=== PATIENT | female | born 1960 | race African-American/Black ===

== ENCOUNTER 2018-01-17 13:41 | Emergency (ER) | payer MEDICAID ==
[~2018-01-17] VITALS: Ht 175.3 cm; Wt 68.0 kg
[~2018-01-17 13:41] MED LIST: PROPRANOLOL; VICODIN
[2018-01-17 15:40] LABS: CHLORIDE 107 mEq/L (98-107)
[2018-01-17] MEDS ORDERED: ONDANSETRON HCL 4MG/2ML VIAL IV STA (15:40)
[2018-01-17] MEDS ORDERED: MORPHINE SULFATE 4 MG/ML CPJ (NOT FOR IM USE) IV STA (15:40)
[2018-01-17 15:41] LABS: BASOPHILS % 0.6 % (0.0-2.0); EOSINOPHILS % 2.5 % (0.0-5.0); HEMATOCRIT. 38.6 % (36.0-48.0); HEMOGLOBIN. 12.8 g/dL (12.0-16.0); LYMPHOCYTES % 30.1 % (20.0-50.0); MEAN CORPUSCULAR HEMOGLOBIN 29.2 pg (28.0-32.0); MEAN CORPUSCULAR VOLUME 87.9 fL (81.0-99.0); MEAN PLATELET VOLUME 8.6 fl (7.4-10.4); MONOCYTES % 6.9 % (2.0-8.0); NEUTROPHILS % 59.9 % (40.0-76.0); PLATELET 289 x1000/uL (130-400); RED BLOOD CELL COUNT 4.39 mill/uL (4.2-5.4); RED CELL DISTRIBUTION WIDTH 14.3 % (11.6-14.6)
[2018-01-17 15:42] LABS: PARTIAL THROMBOPLASTIN TIME 24.5 sec (23.4-31.0); PROTHROMBIN TIME 10.3 sec (9.4-11.6)
[2018-01-17] MEDS ORDERED: PANTOPRAZOLE SODIUM 40 MG/VIAL IV SCH (15:45)
[2018-01-17] MEDS ORDERED: SODIUM CHLORIDE 0.9% 1,000 ML IV ONE (16:32)
[2018-01-17] MEDS ORDERED: DIPHENHYDRAMINE 50MG/ML VIAL IV ONE (16:45)
[2018-01-17 19:00] VITALS: BP 126/71
== END 2018-01-17 19:39 | disposition home or self-care (01) ==
LOC: ER 13:41
DX: R10.13 Epigastric pain (principal); I10 Essential (primary) hypertension; F41.9 Anxiety disorder, unspecified; F17.200 Nicotine dependence, unspecified, uncomplicated; Z98.890 Other specified postprocedural states; Z90.49 Acquired absence of other specified parts of digestive tract
CPT/HCPCS: 36415; 71045; 80053; 83690; 84484; 85025; 85610; 85730; 93005; 96361; 96374; 96375; 99285; C9113; J1200; J2270; J2405; J7030; Z7610

== ENCOUNTER 2019-01-14 05:08 | Emergency (ER) | payer MEDICAID, OTHER ==
[~2019-01-14] VITALS: Ht 172.7 cm; Wt 69.0 kg
[2019-01-14 05:48] LABS: CLARITY URINE TURBID (CLEAR); COLOR URINE YELLOW (YELLOW); KETONES URINE NEGATIVE (NEGATIVE); LEUKOCYTE ESTERASE URINE 3+ (NEGATIVE); NITRITE URINE NEGATIVE (NEGATIVE); OCCULT BLOOD URINE 3+ (NEGATIVE); PH URINE 5.5 (4.5-8.0); PROTEIN URINE 2+ (NEGATIVE); SPECIFIC GRAVITY URINE 1.017 (1.005-1.030); UROBILINOGEN URINE 0.2 E.U./dL (0.2-1.0)
[2019-01-14 06:02] VITALS: BP 103/46
[2019-01-14] MEDS ORDERED: ACETAMINOPHEN 325MG TABLET PO ONE (06:30)
[2019-01-14] MEDS ORDERED: LEVOFLOXACIN 250MG TABLET PO ONE (06:30)
== END 2019-01-14 06:40 | disposition home or self-care (01) ==
LOC: ER 05:08
DX: N39.0 Urinary tract infection, site not specified (principal); R31.0 Gross hematuria; I10 Essential (primary) hypertension; F17.210 Nicotine dependence, cigarettes, uncomplicated
CPT/HCPCS: 99283

== ENCOUNTER 2019-12-23 17:55 | Emergency (ER) | payer OTHER ==
[~2019-12-23] VITALS: Ht 172.7 cm; Wt 65.0 kg
[2019-12-23 17:56] VITALS: BP 146/93
== END 2019-12-23 19:47 | disposition left against medical advice (07) ==
LOC: ER 17:55
DX: M79.662 Pain in left lower leg (principal); I10 Essential (primary) hypertension
CPT/HCPCS: 99281

== ENCOUNTER 2020-02-26 14:14 | Emergency (ER) | payer OTHER ==
[~2020-02-26] VITALS: Ht 172.7 cm; Wt 68.0 kg
[2020-02-26 15:32] LABS: CLARITY URINE CLOUDY (CLEAR); COLOR URINE YELLOW (YELLOW); KETONES URINE NEGATIVE (NEGATIVE); LEUKOCYTE ESTERASE URINE 3+ (NEGATIVE); NITRITE URINE NEGATIVE (NEGATIVE); OCCULT BLOOD URINE 3+ (NEGATIVE); PH URINE 6.5 (4.5-8.0); PROTEIN URINE NEGATIVE (NEGATIVE); SPECIFIC GRAVITY URINE 1.014 (1.005-1.030); UROBILINOGEN URINE 0.2 E.U./dL (0.2-1.0)
[2020-02-26] MEDS ORDERED: CEFTRIAXONE SODIUM 250 MG/VIAL IM ONE (16:45)
[2020-02-26] MEDS ORDERED: AZITHROMYCIN 500 MG TABLET PO ONE (16:45)
[2020-02-26] MEDS ORDERED: FLUCONAZOLE 150MG TABLET PO ONE (16:45)
[2020-02-26] MEDS ORDERED: IBUPROFEN 600MG TABLET PO ONE (16:45)
[2020-02-26 17:10] VITALS: BP 145/78
== END 2020-02-26 18:24 | disposition home or self-care (01) ==
LOC: ER 14:14
DX: A59.00 Urogenital trichomoniasis, unspecified (principal); I10 Essential (primary) hypertension
CPT/HCPCS: 81003; 81025; 87086; 96372; 99284; J0696

== ENCOUNTER 2020-05-23 13:04 | Emergency (ER) | payer OTHER ==
[~2020-05-23] VITALS: Ht 165.1 cm; Wt 69.0 kg
[2020-05-23] MEDS ORDERED: SODIUM CHLORIDE 0.9% 1,000 ML IV ONE (13:30)
[2020-05-23 14:03] LABS: BASOPHILS % 0.6 % (0.0-2.0); EOSINOPHILS % 0.7 % (0.0-5.0); HEMATOCRIT. 44.3 % (36.0-48.0); HEMOGLOBIN. 14.8 g/dL (12.0-16.0); LYMPHOCYTES % 27.3 % (20.0-50.0); MEAN CORPUSCULAR HEMOGLOBIN 31.1 pg (28.0-32.0); MEAN CORPUSCULAR VOLUME 92.8 fL (81.0-99.0); MEAN PLATELET VOLUME 9.2 fl (7.4-10.4); MONOCYTES % 6.6 % (2.0-8.0); NEUTROPHILS % 64.8 % (40.0-76.0); PLATELET 360 x1000/uL (130-400); RED BLOOD CELL COUNT 4.77 mill/uL (4.2-5.4); RED CELL DISTRIBUTION WIDTH 14.4 % (11.6-14.6)
[2020-05-23 14:05] LABS: CHLORIDE 111 mEq/L (98-107)
[2020-05-23 14:34] LABS: ETHANOL BLOOD 56 mg/dL
[2020-05-23 14:47] LABS: CLARITY URINE CLOUDY (CLEAR); COLOR URINE YELLOW (YELLOW); KETONES URINE NEGATIVE (NEGATIVE); LEUKOCYTE ESTERASE URINE 2+ (NEGATIVE); NITRITE URINE NEGATIVE (NEGATIVE); OCCULT BLOOD URINE 3+ (NEGATIVE); PROTEIN URINE NEGATIVE (NEGATIVE); SPECIFIC GRAVITY URINE 1.006 (1.005-1.030); UROBILINOGEN URINE 0.2 E.U./dL (0.2-1.0)
[2020-05-23 15:06] LABS: *AMPHETAMINES SCREEN URINE NEGATIVE (NEGATIVE); *BARBITURATES SCREEN URINE NEGATIVE (NEGATIVE); *BENZODIAZEPINES SCREEN URINE PRESUMTIVE POSITIVE (NEGATIVE); *COCAINE SCREEN URINE PRESUMTIVE POSITIVE (NEGATIVE); CANNABINOID URINE SCREEN NEGATIVE (NEGATIVE); METHADONE URINE SCREEN NEGATIVE (NEGATIVE); OPIATES URINE SCREEN NEGATIVE (NEGATIVE); PHENCYCLIDINE URINE SCREEN PRESUMTIVE POSITIVE (NEGATIVE)
[2020-05-23 17:26] VITALS: BP 134/91
== END 2020-05-23 17:33 | disposition home or self-care (01) ==
LOC: ER 13:21
DX: F19.10 Other psychoactive substance abuse, uncomplicated (principal); F10.129 Alcohol abuse with intoxication, unspecified; I10 Essential (primary) hypertension; F17.200 Nicotine dependence, unspecified, uncomplicated; F16.10 Hallucinogen abuse, uncomplicated; F14.10 Cocaine abuse, uncomplicated; Z90.49 Acquired absence of other specified parts of digestive tract; Z98.890 Other specified postprocedural states; Y90.2 Blood alcohol level of 40-59 mg/100 ml
CPT/HCPCS: 36415; 71045; 80053; 80305; 80307; 80320; 80329; 81003; 82140; 83690; 84484; 85025; 93005; 96360; 96361; 99285; J7030; G0480

== ENCOUNTER 2021-10-13 19:18 | Emergency (ER) | payer OTHER ==
[~2021-10-13] VITALS: Ht 172.7 cm; Wt 62.0 kg
[2021-10-13 21:08] LABS: BASOPHILS % 0.7 % (0.0-2.0); EOSINOPHILS % 1.9 % (0.0-5.0); HEMATOCRIT. 36.1 % (36.0-48.0); HEMOGLOBIN. 12.3 g/dL (12.0-16.0); LYMPHOCYTES % 39.7 % (20.0-50.0); MEAN CORPUSCULAR HEMOGLOBIN 30.7 pg (28.0-32.0); MEAN CORPUSCULAR VOLUME 89.9 fL (81.0-99.0); MEAN PLATELET VOLUME 8.6 fl (7.4-10.4); NEUTROPHILS % 51.7 % (40.0-76.0); PLATELET 304 x1000/uL (130-400); RED BLOOD CELL COUNT 4.01 mill/uL (4.2-5.4); RED CELL DISTRIBUTION WIDTH 14.7 % (11.6-14.6)
[2021-10-13 21:13] LABS: CHLORIDE 107 mEq/L (98-107)
[2021-10-14] MEDS: ASPIRIN 81MG TABLET PO ONE (00:15)
[2021-10-14 02:00] VITALS: BP 122/60
== END 2021-10-14 02:08 | disposition home or self-care (01) ==
LOC: ER 19:18
DX: R07.89 Other chest pain (principal); F14.10 Cocaine abuse, uncomplicated; F13.10 Sedative, hypnotic or anxiolytic abuse, uncomplicated; F16.10 Hallucinogen abuse, uncomplicated; I10 Essential (primary) hypertension; Z90.49 Acquired absence of other specified parts of digestive tract; Z98.890 Other specified postprocedural states
CPT/HCPCS: 36415; 71045; 80053; 83880; 84484; 85025; 93005; 99285

== ENCOUNTER 2022-07-13 10:33 | Emergency (ER) | payer OTHER ==
[~2022-07-13] VITALS: Ht 172.7 cm; Wt 70.0 kg
[2022-07-13 10:48] VITALS: BP 149/82
== END 2022-07-13 14:43 | disposition left against medical advice (07) ==
LOC: ER 10:53
DX: Z53.21 Procedure and treatment not carried out due to patient leaving prior to being seen by health care provider (principal)

== ENCOUNTER 2022-09-05 05:47 | Emergency (ER) | payer OTHER ==
[~2022-09-05] VITALS: Ht 172.7 cm; Wt 67.6 kg
[2022-09-05] MEDS ORDERED: KETOROLAC 30MG/ML VIAL IV STA (05:54)
[2022-09-05] MEDS ORDERED: METOCLOPRAMIDE HCL 10MG/2ML VIAL IV ONE (06:00)
[2022-09-05 06:30] VITALS: BP 126/90
[2022-09-05 06:33] LABS: BASOPHILS % 0.5 % (0.0-2.0); EOSINOPHILS % 0.5 % (0.0-5.0); HEMATOCRIT. 33.6 % (36.0-48.0); HEMOGLOBIN. 11.3 g/dL (12.0-16.0); LYMPHOCYTES % 15.6 % (20.0-50.0); MEAN CORPUSCULAR HEMOGLOBIN 30.4 pg (28.0-32.0); MEAN CORPUSCULAR VOLUME 90.6 fL (81.0-99.0); MEAN PLATELET VOLUME 9.1 fl (7.4-10.4); MONOCYTES % 12.4 % (2.0-8.0); PLATELET 236 x1000/uL (130-400); RED BLOOD CELL COUNT 3.71 mill/uL (4.2-5.4); RED CELL DISTRIBUTION WIDTH 14.7 % (11.6-14.6)
[2022-09-05 06:40] LABS: CHLORIDE 106 mEq/L (98-107)
[2022-09-05 06:51] LABS: PROTHROMBIN TIME 10.3 sec (9.6-11.0)
[2022-09-05] MEDS ORDERED: TOPUD PO (07:59)
[2022-09-05] MEDS ORDERED: ONDA4TAB50 PO (07:59)
== END 2022-09-05 08:16 | disposition home or self-care (01) ==
LOC: ER 05:47
DX: R51.9 Headache, unspecified (principal); R53.83 Other fatigue; R10.9 Unspecified abdominal pain; I10 Essential (primary) hypertension; Z87.440 Personal history of urinary (tract) infections
CPT/HCPCS: 36415; 80053; 83690; 85025; 85610; 96374; 96375; 99284; J1885; J2765; Z7610

== ENCOUNTER 2025-04-23 05:08 | Inpatient (IN) | payer OTHER ==
[~2025-04-23] VITALS: Ht 175.3 cm; Wt 75.5 kg
[~2025-04-23 05:08] MED LIST changes: +ONDA4TAB50 PO; +TOPUD PO
[2025-04-23 05:10] VITALS: O2SAT 100
[2025-04-23 05:52] LABS: BASOPHILS % 0.6 % (0.0-2.0); EOSINOPHILS % 1.6 % (0.0-5.0); HEMATOCRIT. 35.5 % (36.0-48.0); HEMOGLOBIN. 11.9 g/dL (12.0-16.0); LYMPHOCYTES % 9.6 % (20.0-50.0); MEAN PLATELET VOLUME 8.0 fl (7.4-10.4); MONOCYTES % 9.9 % (2.0-8.0); NEUTROPHILS % 78.3 % (40.0-76.0); PLATELET 252 x1000/uL (130-400); RED BLOOD CELL COUNT 3.97 mill/uL (4.2-5.4); RED CELL DISTRIBUTION WIDTH 13.8 % (11.6-14.6)
[2025-04-23] MEDS: SODIUM CHLORIDE 0.9% 1,000 ML IV ONE (06:05)
[2025-04-23 06:07] LABS: CREATININE 0.8 mg/dL (0.6-1.0); UREA NITROGEN BLOOD 8 mg/dL (9-23)
[2025-04-23] MEDS: ACETAMINOPHEN 1000MG/100ML 100 ML IV ONE (06:08)
[2025-04-23] MEDS: METOCLOPRAMIDE HCL 10MG/2ML VIAL IV ONE (06:09)
[2025-04-23] MEDS: KETOROLAC 15MG/ML VIAL IV ONE (06:09)
[2025-04-23 09:00] LABS: TROPONIN I HIGH SENSITIVITY 8 ng/L (3.0-34)
[2025-04-23] MEDS ORDERED: IPRATROPIUM/ALBUTEROL 0.5-3(2.5)MG/3ML NEB HHN PRN (09:15)
[2025-04-23] MEDS ORDERED: ACETAMINOPHEN 325MG TABLET PO PRN (09:15)
[2025-04-23] MEDS ORDERED: ONDANSETRON HCL 4MG/2ML INJ IV PRN (09:15)
[2025-04-23] MEDS ORDERED: GUAIFENESIN 200MG/10ML SUGAR FREE UDC PO PRN (09:15)
[2025-04-23] MEDS ORDERED: DOCUSATE SODIUM 100MG CAPSULE PO PRN (09:15)
[2025-04-23] MEDS ORDERED: CLONIDINE 0.1MG TABLET PO PRN (09:15)
[2025-04-23] MEDS ORDERED: DEXTROSE 50% WATER 50ML SYRINGE IV PRN (09:30)
[2025-04-23] MEDS ORDERED: LORAZEPAM 0.5MG TABLET PO PRN (09:45)
[2025-04-23] MEDS: LISINOPRIL 40MG TABLET PO SCH (10:00)
[2025-04-23] MEDS: SODIUM CHLORIDE 0.45% 1,000 ML IV SCH (10:09)
[2025-04-23] MEDS: ACETAMINOPHEN 325MG TABLET PO PRN (10:40)
[2025-04-23 12:00] VITALS: BP 126/71; PULSE 57; RESP 18; TEMP 36.7; O2SAT 98
[2025-04-23 12:06] VITALS: BP 127/71; PULSE 57; RESP 18; TEMP 36.7516
[2025-04-23] MEDS: BLOOD SUGAR DIAGNOSTIC STRIP TEST SCH (13:31)
[2025-04-23 16:10] VITALS: BP 124/82; PULSE 64; RESP 20; TEMP 36.8; O2SAT 96
[2025-04-23] MEDS: KETOROLAC 30MG/ML VIAL IV PRN (18:55)
[2025-04-23 19:10] LABS: VITAMIN B12 SERUM 1387 pg/mL (211-911)
[2025-04-23 20:00] VITALS: BP 142/76; PULSE 65; RESP 18; TEMP 37.2; O2SAT 98
[2025-04-23] MEDS: MIRTAZAPINE 15MG TABLET PO SCH (21:14)
[2025-04-23] MEDS ORDERED: VARE1TAB24 PO (22:15)
[2025-04-23] MEDS ORDERED: CLON1TAB12 PO (22:15)
[2025-04-23] MEDS: CLONAZEPAM 1MG TABLET PO NR (23:29)
[2025-04-24] VITALS: BP 134/72; PULSE 50; RESP 18; TEMP 36.9; O2SAT 98
[2025-04-24 04:00] VITALS: BP 137/64; PULSE 50; RESP 18; TEMP 36.6; O2SAT 98
[2025-04-24 08:00] VITALS: BP 175/90; PULSE 67; RESP 17; TEMP 36.5
[2025-04-24] MEDS ORDERED: METH-817 MT (08:09)
[2025-04-24] MEDS ORDERED: LISI40TA21 PO (09:46)
[2025-04-24] MEDS ORDERED: VARE1TAB24 PO (09:46)
[2025-04-24] MEDS ORDERED: MIRT-89 PO (09:46)
[2025-04-24] MEDS ORDERED: METH10OR11 PO (10:27)
[2025-04-24] MEDS: METHADONE HCL 5MG TABLET PO SCH (11:39)
[2025-04-24] MEDS: METHADONE HCL 10MG TABLET PO SCH (11:39)
[2025-04-24 12:00] VITALS: BP 151/64; PULSE 54; RESP 16; TEMP 36.7; O2SAT 100
[2025-04-24] MEDS ORDERED: CLONIDINE 0.1MG TABLET PO PRN (12:45)
[2025-04-24 13:25] LABS: CLARITY URINE CLEAR (CLEAR); COLOR URINE YELLOW (YELLOW); GLUCOSE URINE NEGATIVE (NEGATIVE); KETONES URINE NEGATIVE (NEGATIVE); LEUKOCYTE ESTERASE URINE NEGATIVE (NEGATIVE); NITRITE URINE NEGATIVE (NEGATIVE); OCCULT BLOOD URINE 3+ (NEGATIVE); PH URINE 6.0 (4.5-8.0); PROTEIN URINE TRACE (NEGATIVE); SPECIFIC GRAVITY URINE 1.010 (1.005-1.030); UROBILINOGEN URINE 0.2 E.U./dL (0.2-1.0)
[2025-04-24 13:46] LABS: YEAST URINE NONE SEEN
[2025-04-24 13:47] LABS: SQUAMOUS EPITHELIAL CELL URINE FEW /lpf (RARE/1+)
[2025-04-24 13:48] LABS: BACTERIA URINE FEW
[2025-04-24 14:05] LABS: *AMPHETAMINES SCREEN URINE NEGATIVE (NEGATIVE); *BARBITURATES SCREEN URINE NEGATIVE (NEGATIVE); *BENZODIAZEPINES SCREEN URINE NEGATIVE (NEGATIVE)
[2025-04-24 14:06] LABS: *COCAINE SCREEN URINE NEGATIVE (NEGATIVE); CANNABINOID URINE SCREEN NEGATIVE (NEGATIVE); ECSTASY MDMA SCREEN URINE NEGATIVE (NEGATIVE); METHADONE URINE SCREEN Pos (NEGATIVE); OPIATES URINE SCREEN PRESUMPTIVE POSITIVE (NEGATIVE); PHENCYCLIDINE URINE SCREEN NEGATIVE (NEGATIVE)
[2025-04-24] MEDS ORDERED: FERR325T6 MT (14:30)
[2025-04-24] MEDS ORDERED: FERROUS SULFATE 325MG TABLET PO SCH (14:45)
[2025-04-24 16:00] VITALS: BP 147/82; PULSE 50; RESP 15; TEMP 36.7; O2SAT 97
[2025-04-24 17:28] VITALS: BP 147/82; PULSE 50; RESP 15; TEMP 98.1
== END 2025-04-24 18:25 | disposition home or self-care (01) | DRG 177 ==
LOC: ER 05:08 → 7WST 08:46 → EDBEDREQ 08:47 → EDBEDREQTM 08:47 → ENRESERV 08:57 → CANRESERV 08:57 → ENRESERV 09:51
PROVIDERS: ADMIT Internal Medicine; ATTEND Internal Medicine
DX: U07.1 COVID-19 (principal); J12.82 Pneumonia due to coronavirus disease 2019; D72.829 Elevated white blood cell count, unspecified; I10 Essential (primary) hypertension; F41.9 Anxiety disorder, unspecified; F32.A Depression, unspecified; R73.9 Hyperglycemia, unspecified; D50.9 Iron deficiency anemia, unspecified; Z79.899 Other long term (current) drug therapy; Z90.49 Acquired absence of other specified parts of digestive tract
CPT/HCPCS: 36415; 71045; 80048; 80305; 81003; 82607; 82728; 82962; 83036; 83540; 83550; 84484; 85025; 85044; 87426; 93005; J1885; J2765; J7030; J0131